=== PATIENT | male | born 1960 | race Caucasian/White ===

== ENCOUNTER 2018-08-09 12:39 | Emergency (ER) | payer SELFPAY ==
[2018-08-09] MEDS ORDERED: DICYCLOMINE HCL INJ 20 MG/2 ML AMPULE IM ONE (13:09)
[2018-08-09] MEDS ORDERED: CLONIDINE 0.1 MG/24 HR PATCH.TDWK TD ONE (13:09)
[2018-08-09] MEDS ORDERED: PROMETHAZINE HCL 25 MG TABLET PO ONE (13:09)
--- NOTE | 2018-08-09 13:09 | ER Document Report ---
ED Medical Screen (RME) - General Chief Complaint: Back Pain Stated Complaint: BACK PAIN Time Seen by Provider: 08/09/18 12:51 Mode of Arrival: Wheelchair Information source: Patient Notes: Patient is a 57-year-old male with chronic back pain presenting to the emergency department with complaints of pain. Patient reports he has been out of his narcotics. He states he took his last dose yesterday, states although he took his last dose yesterday he has been slowly tapering himself off of them as he moved here from [place] 2 weeks ago and has been unable to get into see pain management. Patient reports he is having acute withdrawals, patient shaking in the wheelchair at the time of my evaluation. Initially his heart rate was 125 for the nurse upfront however on my palpation his manual radial pulse is 76. He denies any chest pain or shortness of breath. I did speak to my attending physician regarding his presentation and her recommendation at this time is to obtain baseline labs as he has not been here in our facility previously and order him clonidine patch, Bentyl IM and P henergan. This plan was discussed with patient and patient agreeable to this plan. Labs will be obtained, patient will be seen by another provider in the back. I have greeted and performed a rapid initial assessment of this patient. A comprehensive ED assessment and evaluation of the patient, analysis of test results and completion of the medical decision making process will be conducted by additional ED providers. I have specifically instructed the patient or family members with the patient to immediately return to any nursing staff should anything change in the patient's condition or with their chief complaint. This medical record was dictated with voice recognizing software. There may be grammatical, syntax errors that are unintended. TRAVEL OUTSIDE OF THE [place] IN LAST 30 DAYS: No - Related Data Allergies/Adverse Reactions: No Known Allergies Allergy (Verified 08/09/18 12:40) Past Medical History - Social History Frequency of alcohol use: None Drug Abuse: None - Past Medical History Cardiac Medical History: Reports: Hx Hypertension Renal/ Medical History: Denies: Hx Peritoneal Dialysis Psychiatric Medical History: Reports: Hx Depression - anxiety Past Surgical History: Reports: Hx Orthopedic Surgery - back Physical Exam - Vital signs Vitals: Temp Pulse Resp BP Pulse Ox 98.4 F 125 H 24 H 145/101 H 95 08/09/18 12:44 08/09/18 12:44 08/09/18 12:44 08/09/18 12:44 08/09/18 12:44 Course - Vital Signs Vital signs: Temp Pulse Resp BP Pulse Ox 98.5 F 78 18 150/89 H 98 08/09/18 16:44 08/09/18 16:44 08/09/18 16:44 08/09/18 16:44 08/09/18 16:44 - Laboratory Result Diagrams: 08/09/18 13:30 08/09/18 13:30 Laboratory results interpreted by me: 08/09/18 08/09/18 13:30 13:30 RBC 6.09 H Hgb 17.4 H RDW 14.1 H Seg Neutrophils % 79.0 H Glucose 123 H AST 13 L ALT 16 L Albumin 5.2 H Doctor's Discharge - Discharge Clinical Impression: Back pain Condition: Good Disposition: HOME, SELF-CARE Additional Instructions: You have been seen in the Emergency Department (ED) today for back pain. Unfortunately, we are unable to prescribe narcotic medications out of the emergency department. We have given you a short course of Valium that he can take to help with these symptoms. Please also take Motrin 600 mg every 6 hours and/or Tylenol every 6 hours for pain/inflammation. Apply heat to the area as often as you are able. Continue to keep active and avoid prolonged periods of bed rest. Please follow up with pain management as soon as possible regarding today's ED visit and your back pain. Return to the ED for fever, weakness or numbness of either leg, or if you develop either (1) an inability to urinate or have bowel movements, or (2) loss of your ability to control your bathroom functions (if you start having "accidents"), or if you develop other new symptoms that concern you. Prescriptions: Diazepam 10 mg PO Q8H PRN #12 tablet PRN Reason:
[2018-08-09 14:02] LABS: ABSOLUTE BASOPHILS # (AUTO) 0.1 10^3/uL (0.0-0.2); ABSOLUTE EOSINOPHILS # (AUTO) 0.1 10^3/uL (0.0-0.6); ABSOLUTE LYMPHOCYTES (AUTO) 1.1 10^3/uL (0.5-4.7); ABSOLUTE MONOCYTES (AUTO) 0.2 10^3/uL (0.1-1.4); ABSOLUTE NEUT (AUTO) 5.7 10^3/uL (1.7-8.2); BASOPHILS % (AUTO) 1.1 % (0-2); HEMATOCRIT 50.3 % (37.9-51.0); HEMOGLOBIN 17.4 g/dL (13.5-17.0); LYMPHOCYTES % (AUTO) 15.7 % (13-45); MEAN CORPUSCULAR HEMOGLOBIN 28.5 pg (27.0-33.4); MEAN CORPUSCULAR HGB CONC 34.5 g/dL (32.0-36.0); MEAN CORPUSCULAR VOLUME 83 fl (80-97); MONOCYTES % (AUTO) 3.2 % (3-13); PLATELET COUNT 280 10^3/uL (150-450); RED BLOOD COUNT 6.09 10^6/uL (4.35-5.55); RED CELL DISTRIBUTION WIDTH 14.1 % (11.5-14.0); TOTAL CELLS COUNTED % (AUTO) 100 %; WHITE BLOOD COUNT 7.2 10^3/uL (4.0-10.5)
[2018-08-09 14:22] LABS: ALANINE AMINOTRANSFERASE 16 U/L (21-72); ALBUMIN 5.2 g/dL (3.5-5.0); ALKALINE PHOSPHATASE 87 U/L (38-126); ANION GAP 11 (5-19); ASPARTATE AMINO TRANSFERASE 13 U/L (17-59); BILIRUBIN,DIRECT 0.3 mg/dL (0.0-0.4); BILIRUBIN,TOTAL 0.4 mg/dL (0.2-1.3); BLOOD UREA NITROGEN 11 mg/dL (7-20); CALCIUM 10.2 mg/dL (8.4-10.2); CARBON DIOXIDE 23 mmol/L (22-30); CHLORIDE 105 mmol/L (98-107); CREATINE KINASE 97 U/L (55-170); GLUCOSE 123 mg/dL (75-110); POTASSIUM 4.6 mmol/L (3.6-5.0); SODIUM 139.4 mmol/L (137-145); TOTAL PROTEIN 8.1 g/dL (6.3-8.2)
[2018-08-09 14:34] LABS: CREATINE KINASE MB 1.05 ng/mL (<4.55)
[2018-08-09 14:42] LABS: TROPONIN I < 0.012 ng/mL
--- NOTE | 2018-08-09 15:56 | ER Document Report ---
ED General Pain - General Chief Complaint: Back Pain Stated Complaint: BACK PAIN Time Seen by Provider: 08/09/18 12:51 Mode of Arrival: Wheelchair Notes: 57-year-old male with history of multiple back surgeries on pain management in [place] who moved to [place] 2 weeks ago presents to the emergency department for acute pain and opiate withdrawal. Patient states he does not have insurance and has been unable to get his pain medications prescribed from pain management in [place]. He was taking oxycodone 10 mg every 8 hours and morphine 15 mg X are 2 times per day. Patient states he is in unbearable pain and he stated "either help me or shoot me". Patient denies fevers but complains of diaphoresis, patient can complains of severe, acute burning pain like "blowtorch is blasting my toes" of the left foot. Patient is also complaining of a severe headache, diarrhea, and irritability. No shortness of breath or chest pain he denies fevers or chills, denies nausea or vomiting, denies abdominal pain. No other complaints TRAVEL OUTSIDE OF THE [place] IN LAST 30 DAYS: No - Related Data Allergies/Adverse Reactions: No Known Allergies Allergy (Verified 08/09/18 12:40) Past Medical History - General Information source: Patient - Social History Smoking Status: Current Every Day Smoker Frequency of alcohol use: None Drug Abuse: None Family History: None Patient has suicidal ideation: No Patient has homicidal ideation: No - Past Medical History Cardiac Medical History: Reports: Hx Hypertension Renal/ Medical History: Denies: Hx Peritoneal Dialysis Psychiatric Medical History: Reports: Hx Depression - anxiety Past Surgical History: Reports: Hx Orthopedic Surgery - back Review of Systems - Review of Systems Constitutional: See HPI EENT: No symptoms reported Cardiovascular: See HPI Respiratory: See HPI Gastrointestinal: See HPI Genitourinary: See HPI Male Genitourinary: No symptoms reported Musculoskeletal: See HPI Skin: See HPI Hematologic/Lymphatic: No symptoms reported Neurological/Psychological: No symptoms reported Physical Exam - Vital signs Vitals: Temp Pulse Resp BP Pulse Ox 98.4 F 125 H 24 H 145/101 H 95 08/09/18 12:44 08/09/18 12:44 08/09/18 12:44 08/09/18 12:44 08/09/18 12:44 - Notes Notes: PHYSICAL EXAMINATION: Reviewed vital signs and charting by RN GENERAL: Alert, interacts well. Acute distress. HEAD: Normocephalic, atraumatic. EYES: Pupils equal and round. Extraocular movements intact. ENT: Oral mucosa moist, tongue midline. NECK: Full range of motion. Trachea midline. LUNGS: Clear to auscultation bilaterally, no wheezes, rales, or rhonchi. No respiratory distress. HEART: Regular rate and rhythm. No murmur ABDOMEN: soft, non-tender. No distention. Bowel sounds present EXTREMITIES: Moves all 4 extremities spontaneously. No edema, No cyanosis. PSYCH: Normal affect, normal mood. SKIN: Warm, dry, normal turgor. No rashes or lesions noted. Course - Re-evaluation Re-evalutation: 08/09/18 16:07 Patient presents in acute distress. Initial heart rate 125 in triage but upon my assessment it was 90. Patient given clonidine, Bentyl, Phenergan in triage. Briefly discussed with Dr. Villegas, supervising physician, who agreed that narcotics are an appropriate and will not treatment is clonidine. 08/09/18 16:18 I have given patient diazepam 10 mg IM once. Discussed with supervising physician once more and narcotics will not be prescribed. Will give diazepam 10 mg p.o. #12 to bridge patient until his appointment on Saturday. At this point his vital signs are within normal limits and he is stable for discharge. - Vital Signs Vital signs: Temp Pulse Resp BP Pulse Ox 98.4 F 125 H 24 H 145/101 H 95 08/09/18 12:44 08/09/18 12:44 08/09/18 12:44 08/09/18 12:44 08/09/18 12:44 - Laboratory Result Diagrams: 08/09/18 13:30 08/09/18 13:30 Laboratory results interpreted by me: 08/09/18 08/09/18 13:30 13:30 RBC 6.09 H Hgb 17.4 H RDW 14.1 H Seg Neutrophils % 79.0 H Glucose 123 H AST 13 L ALT 16 L Albumin 5.2 H Discharge - Discharge Clinical Impression: Back pain Qualifiers: Back pain location: low back pain Chronicity: chronic Back pain laterality: left Sciatica presence: with sciatica Sciatica laterality: sciatica of left side Qualified Code(s): M54.42 - Lumbago with sciatica, left side; G89.29 - Other chronic pain Condition: Good Disposition: HOME, SELF-CARE Additional Instructions: You have been seen in the Emergency Department (ED) today for back pain. Unfortunately, we are unable to prescribe narcotic medications out of the emergency department. We have given you a short course of Valium that he can take to help with these symptoms. Please also take Motrin 600 mg every 6 hours and/or Tylenol every 6 hours for pain/inflammation. Apply heat to the area as often as you are able. Continue to keep active and avoid prolonged periods of bed rest. Please follow up with pain management as soon as possible regarding today's ED visit and your back pain. Return to the ED for fever, weakness or numbness of either leg, or if you develop either (1) an inability to urinate or have bowel movements, or (2) loss of your ability to control your bathroom functions (if you start having "accidents"), or if you develop other new symptoms that concern you.
[2018-08-09] MEDS ORDERED: DIAZEPAM INJ 10 MG/2 ML DISP.SYRIN IM ONE (16:10)
[2018-08-09] MEDS ORDERED: ACETAMINOPHEN 325 MG TABLET PO ONE (16:25)
[2018-08-09 16:45] VITALS: BP 150/89
--- NOTE | 2018-08-10 09:30 | EKG REPORT ---
SEVERITY:- BORDERLINE ECG - SINUS RHYTHM BORDERLINE T WAVE ABNORMALITIES : Confirmed by: Shayla Ortega MD 10-Aug-2018 09:29:15
== END 2018-08-09 16:46 | disposition home or self-care (01) ==
LOC: ER 12:39
DX: G89.29 Other chronic pain (principal); M54.42 Lumbago with sciatica, left side; R51 Headache; R19.7 Diarrhea, unspecified; F17.200 Nicotine dependence, unspecified, uncomplicated; I10 Essential (primary) hypertension
CPT/HCPCS: 93005; 99283; 96372; 36415; 82553; 82550; 85025; 80053; 84484; 93010; J3360; J0500; J3490

== ENCOUNTER 2018-08-18 02:39 | Emergency (ER) | payer BC ==
[2018-08-18 02:51] VITALS: BP 151/88
--- NOTE | 2018-08-18 04:40 | ER Document Report ---
ED General - General Chief Complaint: Skin Problem Stated Complaint: POSSIBLE ALLERGIC REACTION Time Seen by Provider: 08/18/18 04:10 Primary Care Provider: ERIN BRAVO MD [COMMUNITY BASED STAFF] - Follow up in 3-5 days (OR YOUR PRIMARY CARE. ) Notes: Patient is a 57-year-old male that presents to the emergency department for chief complaint of left arm pain possible allergic reaction. Patient reports he was seen here just over a week ago, for back pain, and was treated for possible withdrawal, and was given IM Valium, as well as IM Bentyl, he states that shortly after getting the injection, he had pain, and redness and is persisted over the course of the week he does not improve so he decided to come to the emergency department to be reevaluated. He denies any fevers, chills, night sweats. He currently rates the pain as a 2 out of 10, is worse when palpated in certain areas of it, is just over the deltoid. He does have some pain with range of motion as well as seems to make it worse particular with abduction of the shoulder. Denies any chest pain, shortness of breath, difficulty breathing, abdominal pain, nausea or vomiting. Past Medical History: Chronic low back pain, hypertension Past Surgical History: Multiple back surgeries Social History: Admits to smoking cigarettes, denies alcohol or illicit drug use. Family History: Reviewed and noncontributory for presenting illness Allergies: Reviewed, see documented allergy list. REVIEW OF SYSTEMS: Other than noted above, the 12 point review of systems was reviewed with the patient and were negative, all pertinent findings are included in the HPI. PHYSICAL EXAMINATION: Vital signs reviewed, nursing noted reviewed. GENERAL: Well-appearing, well-nourished and in no acute distress. HEAD: Atraumatic, normocephalic. EYES: Eyes appear normal, sclera anicteric, conjunctiva are normal. ENT: Moist mucous membranes. NECK: Normal range of motion, supple without lymphadenopathy LUNGS: Breath sounds clear to auscultation bilaterally and equal. No wheezes rales or rhonchi. HEART: Regular rate and rhythm without murmurs EXTREMITIES: Nontender, good range of motion, no pitting or edema. NEUROLOGICAL: No focal neurological deficits. Moves all extremities spontaneously Motor and sensory grossly intact on exam. PSYCH: Normal mood, normal affect. SKIN: Warm, Dry, normal turgor, on the left lateral aspect of the shoulder, over the deltoid, there is an area of erythema and skin irritation measuring approximately 1-1/2 cm in diameter, and there are extensions of erythema anteriorly on the skin and posteriorly, no flutuance noted, there is no axillary lymphadenopathy noted. This appears most consistent with a superficial phlebitis. TRAVEL OUTSIDE OF THE [place] IN LAST 30 DAYS: No - Related Data Allergies/Adverse Reactions: No Known Allergies Allergy (Verified 08/09/18 12:40) Past Medical History - Social History Smoking Status: Current Every Day Smoker Family History: None Patient has suicidal ideation: No Patient has homicidal ideation: No - Past Medical History Cardiac Medical History: Reports: Hx Hypertension Renal/ Medical History: Denies: Hx Peritoneal Dialysis Psychiatric Medical History: Reports: Hx Depression - anxiety Past Surgical History: Reports: Hx Orthopedic Surgery - back Physical Exam - Vital signs Vitals: Temp Pulse Resp BP Pulse Ox 97.9 F 79 18 151/88 H 99 08/18/18 02:50 08/18/18 02:50 08/18/18 02:50 08/18/18 02:50 08/18/18 02:50 Course - Re-evaluation Re-evalutation: Patient seen and examined, vital signs reviewed. On exam there appears to be a skin reaction over the left deltoid, likely a phlebitis from the IM bentyl would be most likely, it does not appear to be cellulitis and under bedside US there was no abscess or fluid collection noted. At this point the patient appears stable, will advise anti inflammatories and cover with keflex in case this may be a early cellulitis and advised follow up with his PCP, he was agreeable to this plan of care and discharge to home in stable condition. - Vital Signs Vital signs: Temp Pulse Resp BP Pulse Ox 97.9 F 79 18 151/88 H 99 08/18/18 02:50 08/18/18 02:50 08/18/18 02:50 08/18/18 02:50 08/18/18 02:50 Discharge - Discharge Clinical Impression: Phlebitis Medication reaction Qualifiers: Encounter type: initial encounter Qualified Code(s): T50.905A - Adverse effect of unspecified drugs, medicaments and biological substances, initial encounter Condition: Stable Disposition: HOME, SELF-CARE Instructions: Superficial Phlebitis ([facility]) Additional Instructions: Please take the prescribed antibiotics, and anti-inflammatory over the next 7 days, please follow-up with your primary care physician, if this worsens, or is not improving over the next week, do not hesitate to return to the emergency department to be reevaluated. Prescriptions: RX: Cephalexin Monohydrate [Keflex 500 mg Capsule] 500 mg PO TID 7 Days #21 capsule Ibuprofen [Motrin 600 mg Tablet] 600 mg PO Q8H #30 tablet Referrals: ERIN BRAVO MD [COMMUNITY BASED STAFF] - Follow up in 3-5 days (OR YOUR PRIMARY CARE. )
== END 2018-08-18 04:51 | disposition home or self-care (01) ==
LOC: ER 02:39
DX: I80.8 Phlebitis and thrombophlebitis of other sites (principal); M79.602 Pain in left arm; T50.905A Adverse effect of unspecified drugs, medicaments and biological substances, initial encounter; X58.XXXA Exposure to other specified factors, initial encounter; G89.29 Other chronic pain; M54.5 Low back pain; I10 Essential (primary) hypertension; F17.210 Nicotine dependence, cigarettes, uncomplicated
CPT/HCPCS: 99283

== ENCOUNTER → 2019-05-06 | Outpatient (CLI) | payer BC ==
--- NOTE | 2019-05-06 11:00 | RADIOLOGY REPORT (SQ) ---
EXAM DESCRIPTION: SHOULDER RIGHT 2 OR MORE VIEWS COMPLETED DATE/TIME: 05/06/2019 9:40 am REASON FOR STUDY: S46.001A UNSP INJ MUSC/TEND THE ROTATOR CUFF OF R SHOULDER, INIT S46.001A UNSP IN J MUSC/TEND THE ROTATOR CUFF OF R SHOULDER, COMPARISON: None. NUMBER OF VIEWS: Three views. TECHNIQUE: Internal rotation, external rotation, and Y view images acquired of the right shoulder. LIMITATIONS: None. FINDINGS: MINERALIZATION: Normal. BONES: No acute fracture. No worrisome bone lesions. JOINTS: No dislocation. Acromioclavicular osteoarthropathy. VISUALIZED LUNGS AND RIBS: No pneumothorax. No rib fracture. SOFT TISSUES: No radiopaque foreign body. OTHER: No other significant finding. IMPRESSION: No evidence of acute bony abnormality of the right shoulder. [id number] acromioclavicular osteoarthropathy. TECHNICAL DOCUMENTATION: JOB ID: [id number] 2010 [employer]- All Rights Reserved Reading location - IP/workstation name: [email or web address]
== END ==
LOC: RAD 09:28
PROVIDERS: ATTEND Nurse Practitioner Primary Care
DX: S46.001A Unspecified injury of muscle(s) and tendon(s) of the rotator cuff of right shoulder, initial encounter (principal); X58.XXXA Exposure to other specified factors, initial encounter; M89.411 Other hypertrophic osteoarthropathy, right shoulder

== ENCOUNTER → 2019-11-09 | Day surgery (SDC) | payer BC ==
[~2019-11-09] MED LIST: LIDOCAINE 1% INJ-PF (10 MG/ML) 30 ML SDV ONE
--- NOTE | 2019-11-09 12:31 | RADIOLOGY REPORT (SQ) ---
EXAM DESCRIPTION: MRI RT UPPER JOINT WITH IMAGES COMPLETED DATE/TIME: 11/09/2019 10:50 am REASON FOR STUDY: M75.101 UNSP ROTATR-CUFF TEAR/RUPTR OF RIGHT SHOULDER, NOT TRAUMA M75.101 UNSP RO TATR-CUFF TEAR/RUPTR OF RIGHT SHOULDER, NOT T COMPARISON: None. TECHNIQUE: Right shoulder images acquired and stored on PACS. Oblique coronal, oblique sagittal, and axial imaging to include fat sensitive sequences as T1, water sensitive sequences as FST2/STIR, and contrast sensitive sequences as FST1. LIMITATIONS: None. FINDINGS: JOINT DISTENTION: Adequate distention for interpretation. BONE MARROW AND CORTEX: See glenohumeral findings below. No occult fracture or overtly suspicious mary jo ne lesion. No marrow replacement process. AC JOINT: Mild -moderate predominantly dorsal hypertrophic overgrowth. Subacromial space relatively preserved. GLENOHUMERAL JOINT: Subchondral cyst in the upper glenoid extending into the base of the coracoid pro cess. This appears to be associated with adjacent articular cartilage loss and labral tear. Potenti al extraosseous subcoracoid extension. ROTATOR CUFF: Suspect partial tear subscapularis. Some of this may be artifact related to arthrograp hy. Mild atrophy in the supraspinatus and infraspinatus muscles suspected. LABRUM AND BICEPS LABRAL COMPLEX: Irregular tear through the superior labrum to include the anchor. Tear extends into the intra-articular biceps tendon. Flattened partially torn appearance coursing ov er the lesser tuberosity. Slight subluxation here. INFERIOR LABRAL COMPLEX: Intact as assessed. ADJACENT SOFT TISSUES: No masses or nodes. OTHER: No other significant finding. IMPRESSION: 1. Superior labral tear with partial biceps tear and slight subluxation. 2. Partial tear subscapularis. Mild atrophy in the cuff. 3. Other findings as above. TECHNICAL DOCUMENTATION: JOB ID: [id number] 2010 [employer]- All Rights Reserved Reading location - IP/workstation name: [email or web address]
--- NOTE | 2019-11-09 14:48 | RADIOLOGY REPORT (SQ) ---
EXAM DESCRIPTION: FLUORO/NEEDLE PLACEMENT; ARTHRO SHOULDER INJECTION IMAGES COMPLETED DATE/TIME: 11/09/2019 10:26 am REASON FOR STUDY: M75.101 UNSP ROTATR-CUFF TEAR/RUPTR OF RIGHT SHOULDER, NOT TRAUMA M75.101 UNSP RO TATR-CUFF TEAR/RUPTR OF RIGHT SHOULDER, NOT T COMPARISON: None. FLUOROSCOPY TIME: 0.4 minutes 1 images saved to PACS. LIMITATIONS: None. PROCEDURE: Procedure, risks, benefits and alternatives explained to patient who then gave written co nsent. The right shoulder was marked and a time out was called for correct procedure verification. P osterior entry site marked using fluoroscopic guidance. Shoulder prepped and draped using sterile te chnique. Local anesthesia achieved using 1% lidocaine injection. Hypodermic needle introduced into the joint space under direct fluoroscopic visualization. Non-ionic contrast instilled to confirm intr a-articular position. Dilute gadolinium solution then injected. Needle removed and entry site covere d with sterile bandage. No immediate complications noted. TECHNIQUE: Digital images acquired during fluoroscopy and stored on PACS. Patient immediately take n to the MR suite for additional imaging. INJECTION LOCATION: Right posterior shoulder CONTRAST TYPE AND AMOUNT: 1 mL Omnipaque, 10 mL dilute ProHance. IMPRESSION: SUCCESSFUL NEEDLE PLACEMENT AND INJECTION FOR RIGHT SHOULDER MR ARTHROGRAM USING POSTERI OR APPROACH. COMMENT: None Quality ID 145: Final reports for procedures using fluoroscopy that document radiation exposure luca donna, or exposure time and number of fluorographic images (if radiation exposure indices are not avail able) TECHNICAL DOCUMENTATION: JOB ID: [id number] 2010 [employer]- All Rights Reserved Reading location - IP/workstation name: [email or web address] [id number]
--- NOTE | 2019-11-09 14:48 | RADIOLOGY REPORT (SQ) ---
EXAM DESCRIPTION: FLUORO/NEEDLE PLACEMENT; ARTHRO SHOULDER INJECTION IMAGES COMPLETED DATE/TIME: 11/09/2019 10:26 am REASON FOR STUDY: M75.101 UNSP ROTATR-CUFF TEAR/RUPTR OF RIGHT SHOULDER, NOT TRAUMA M75.101 UNSP RO TATR-CUFF TEAR/RUPTR OF RIGHT SHOULDER, NOT T COMPARISON: None. FLUOROSCOPY TIME: 0.4 minutes 1 images saved to PACS. LIMITATIONS: None. PROCEDURE: Procedure, risks, benefits and alternatives explained to patient who then gave written co nsent. The right shoulder was marked and a time out was called for correct procedure verification. P osterior entry site marked using fluoroscopic guidance. Shoulder prepped and draped using sterile te chnique. Local anesthesia achieved using 1% lidocaine injection. Hypodermic needle introduced into the joint space under direct fluoroscopic visualization. Non-ionic contrast instilled to confirm intr a-articular position. Dilute gadolinium solution then injected. Needle removed and entry site covere d with sterile bandage. No immediate complications noted. TECHNIQUE: Digital images acquired during fluoroscopy and stored on PACS. Patient immediately take n to the MR suite for additional imaging. INJECTION LOCATION: Right posterior shoulder CONTRAST TYPE AND AMOUNT: 1 mL Omnipaque, 10 mL dilute ProHance. IMPRESSION: SUCCESSFUL NEEDLE PLACEMENT AND INJECTION FOR RIGHT SHOULDER MR ARTHROGRAM USING POSTERI OR APPROACH. COMMENT: None Quality ID 145: Final reports for procedures using fluoroscopy that document radiation exposure luca donna, or exposure time and number of fluorographic images (if radiation exposure indices are not avail able) TECHNICAL DOCUMENTATION: JOB ID: [id number] 2010 [employer]- All Rights Reserved Reading location - IP/workstation name: [email or web address] [id number]
== END ==
LOC: RAD 09:39
PROVIDERS: ATTEND Physician Assistant
DX: M75.101 Unspecified rotator cuff tear or rupture of right shoulder, not specified as traumatic (principal); S43.431A Superior glenoid labrum lesion of right shoulder, initial encounter; S43.491A Other sprain of right shoulder joint, initial encounter; X58.XXXA Exposure to other specified factors, initial encounter
CPT/HCPCS: 73222; 77002; 23350; A9576; J3490

== ENCOUNTER 2020-02-08 12:39 | Emergency (ER) | payer BC ==
--- NOTE | 2020-02-08 13:22 | ER Document Report ---
ED Medical Screen (RME) - General Chief Complaint: Flu Symptoms Stated Complaint: NAUSEA/ABDOMINAL PAIN Time Seen by Provider: 02/08/20 13:14 Primary Care Provider: JOSE ENRIQUE VERONICA MD [Primary Care Provider] - Follow up as needed Mode of Arrival: Wheelchair Information source: Patient Notes: 59-year-old male presents to ED for complaint is sick to stomach weak dizzy fe els like he is in a pass out back and shoulder pain congestion short of breath but no bicycle of her son. Smokes pack a day does not drink or do drugs. Has a history of back and shoulder surgeries high blood pressure cholesterol and is on multiple medication he does not know what they are for. I have greeted and performed a rapid initial assessment of this patient. A comprehensive ED assessment and evaluation of the patient, analysis of test results and completion of medical decision making process will be conducted by an additional ED providers. TRAVEL OUTSIDE OF THE [place] IN LAST 30 DAYS: No - Related Data Allergies/Adverse Reactions: No Known Allergies Allergy (Verified 02/08/20 13:14) Past Medical History - Past Medical History Cardiac Medical History: Reports: Hx Hypertension Renal/ Medical History: Denies: Hx Peritoneal Dialysis Psychiatric Medical History: Reports: Hx Depression - anxiety Past Surgical History: Reports: Hx Orthopedic Surgery - back Physical Exam - Vital signs Vitals: Temp Pulse Resp BP Pulse Ox 98.3 F 78 22 H 139/85 H 98 02/08/20 00:55 02/08/20 00:55 02/08/20 00:55 02/08/20 00:55 02/08/20 00:55 Course - Vital Signs Vital signs: Temp Pulse Resp BP Pulse Ox 98.3 F 78 22 H 139/85 H 98 02/08/20 00:55 02/08/20 00:55 02/08/20 00:55 02/08/20 00:55 02/08/20 00:55 Doctor's Discharge - Discharge Referrals: JOSE ENRIQUE VERONICA MD [Primary Care Provider] - Follow up as needed
--- NOTE | 2020-02-08 14:28 | RADIOLOGY REPORT (SQ) ---
EXAM DESCRIPTION: CHEST SINGLE VIEW IMAGES COMPLETED DATE/TIME: 02/08/2020 2:16 pm REASON FOR STUDY: short of breath COMPARISON: None. EXAM PARAMETERS: NUMBER OF VIEWS: One view. TECHNIQUE: Single frontal radiographic view of the chest acquired. RADIATION DOSE: NA LIMITATIONS: None. FINDINGS: LUNGS AND PLEURA: No opacities, masses or pneumothorax. No pleural effusion. MEDIASTINUM AND HILAR STRUCTURES: No masses. Contour normal. HEART AND VASCULAR STRUCTURES: Heart normal in size. Normal vasculature. BONES: No acute findings. HARDWARE: None in the chest. OTHER: No other significant finding. IMPRESSION: 1. NO ACUTE RADIOGRAPHIC FINDING IN THE CHEST. TECHNICAL DOCUMENTATION: JOB ID: [id number] 2010 [employer]- All Rights Reserved Reading location - IP/workstation name: [email or web address]
[2020-02-08] MEDS ORDERED: METOCLOPRAMIDE HCL INJ/PF 10 MG/2 ML SDV IV ONE (18:05)
[2020-02-08] MEDS ORDERED: NORMAL SALINE 1000 ML 1,000 ML IV ONE ×2 (18:05)
[2020-02-08] MEDS ORDERED: DIPHENHYDRAMINE HCL 50 MG/ML VIAL IV ONE (18:05)
[2020-02-08] MEDS ORDERED: PANTOPRAZOLE SODIUM 40 MG VIAL IV STA (18:06)
[2020-02-08] MEDS ORDERED: FENTANYL CITRATE INJ/PF 100 MCG/2 ML AMPUL IV ONE (18:06)
[2020-02-08 18:35] LABS: HEMATOCRIT 51.3 % (37.9-51.0); HEMOGLOBIN 17.5 g/dL (13.5-17.0); MEAN CORPUSCULAR HEMOGLOBIN 28.5 pg (27.0-33.4); MEAN CORPUSCULAR HGB CONC 34.1 g/dL (32.0-36.0); MEAN CORPUSCULAR VOLUME 83 fl (80-97); PLATELET COUNT 242 10^3/uL (150-450); RED BLOOD COUNT 6.15 10^6/uL (4.35-5.55); RED CELL DISTRIBUTION WIDTH 14.2 % (11.5-14.0); WHITE BLOOD COUNT 15.4 10^3/uL (4.0-10.5)
[2020-02-08 18:54] LABS: ALKALINE PHOSPHATASE 111 U/L (38-126); ANION GAP 10 (5-19); ASPARTATE AMINO TRANSFERASE 20 U/L (17-59); BILIRUBIN,DIRECT 0.2 mg/dL (0.0-0.4); BILIRUBIN,TOTAL 0.6 mg/dL (0.2-1.3); BLOOD UREA NITROGEN 10 mg/dL (7-20); CALCIUM 10.3 mg/dL (8.4-10.2); CARBON DIOXIDE 26 mmol/L (22-30); CHLORIDE 104 mmol/L (98-107); GLUCOSE 133 mg/dL (75-110); POTASSIUM 3.9 mmol/L (3.6-5.0); TOTAL PROTEIN 8.4 g/dL (6.3-8.2)
[2020-02-08 18:57] LABS: ABSOLUTE LYMPHOCYTES# (MANUAL) 1.2 10^3/uL (0.5-4.7); ABSOLUTE MONOCYTES # (MANUAL) 0.2 10^3/uL (0.1-1.4); BAND NEUTROPHILS % (MANUAL) 1 % (3-5); BASOPHILS % (MANUAL) 1 % (0-2); EOSINOPHILS % (MANUAL) 0 % (0-6); LYMPHOCYTES % (MANUAL) 8 % (13-45); MONOCYTES % (MANUAL) 1 % (3-13); SEGMENTED NEUTROPHILS % (MAN) 89 % (42-78); TOTAL CELLS COUNTED 100
[2020-02-08 18:58] LABS: ANISOCYTOSIS SLIGHT; PLATELET COMMENT ADEQUATE
--- NOTE | 2020-02-08 19:04 | ER Document Report ---
Entered by UMA NGUYEN SCRIBE 02/08/20 1728 Acting as scribe for:SERGEI YEN, DO ED General - General Chief Complaint: Flu Symptoms Stated Complaint: NAUSEA/ABDOMINAL PAIN Time Seen by Provider: 02/08/20 13:14 Primary Care Provider: JOSE ENRIQUE VERONICA MD [Primary Care Provider] - Follow up as needed Mode of Arrival: Wheelchair Information source: Patient Notes: This 59 year old male patient presents to the emergency department today with complaints of diffuse abdominal pain, nausea, and vomiting. Patient is in pain management, filling a prescription for #150 15mg oxycodone 10 days ago (01/29/2020) for chronic back pain. He reports that he woke up with this pain. He had a normal bowel movement this morning. He denies any fevers, cough, or diarrhea. TRAVEL OUTSIDE OF THE [place] IN LAST 30 DAYS: No - Related Data Allergies/Adverse Reactions: No Known Allergies Allergy (Verified 02/08/20 13:14) Home Medications: HTN. OXYCODONE. VITAMINS. CELEXA. CHOLESTEROL Past Medical History - General Information source: Patient - Social History Smoking Status: Current Every Day Smoker Cigarette use (# per day): Yes Chew tobacco use (# tins/day): No Frequency of alcohol use: None Drug Abuse: None Occupation: unemployed Lives with: Family Family History: None Patient has homicidal ideation: No - Past Medical History Cardiac Medical History: Reports: Hx Hypertension Psychiatric Medical History: Reports: Hx Anxiety, Hx Depression Past Surgical History: Reports: Hx Orthopedic Surgery - back Review of Systems - Review of Systems Constitutional: denies: Fever EENT: No symptoms reported Cardiovascular: No symptoms reported Respiratory: denies: Cough Gastrointestinal: See HPI, Abdominal pain, Nausea, Vomiting. denies: Diarrhea Genitourinary: No symptoms reported Male Genitourinary: No symptoms reported Musculoskeletal: No symptoms reported Skin: No symptoms reported Hematologic/Lymphatic: No symptoms reported Neurological/Psychological: No symptoms reported -: Yes All other systems reviewed and negative Physical Exam - Vital signs Vitals: Temp Pulse Resp BP Pulse Ox 98.3 F 78 22 H 139/85 H 98 02/08/20 00:55 02/08/20 00:55 02/08/20 00:55 02/08/20 00:55 02/08/20 00:55 - Notes Notes: Physical Exam: General: Alert, appears well. HEENT: Normocephalic. Atraumatic. PERRL. Extraocular movements intact. Oropharynx clear. Neck: Supple. Non-tender. Respiratory: No respiratory distress. Clear and equal breath sounds bilaterally. Cardiovascular: Regular rate and rhythm. Abdominal: Epigastric and LUQ tenderness to palpation. No distension. Normal Bowel Sounds. Back: No gross abnormalities. Extremities: Moves all four extremities. Upper extremities: Normal inspection. Normal ROM. Lower extremities: Normal inspection. No edema. Normal ROM. Neurological: Normal cognition. AAOx4. Normal speech. Psychological: Normal affect. Normal Mood. Skin: Warm. Dry. Normal color. Course - Re-evaluation Re-evalutation: 02/08/20 22:52 MDM 59 year old male feeling poorly with epigastric pain and nausea and vomiting today earlier. He feels better here after treatment and his workup here is reassuring. Feel he is a reasonable candidate to follow up. Discussed return precautions. - Vital Signs Vital signs: Temp Pulse Resp BP Pulse Ox 98.9 F 92 18 105/57 L 95 02/08/20 21:41 02/08/20 21:41 02/08/20 21:41 02/08/20 21:41 02/08/20 21:41 - Laboratory Results Result Diagrams: 02/08/20 18:24 02/08/20 18:24 Laboratory Results Interpreted: 02/08/20 02/08/20 18:24 18:24 WBC 15.4 H RBC 6.15 H Hgb 17.5 H Hct 51.3 H RDW 14.2 H Seg Neuts % (Manual) 89 H Band Neutrophils % 1 L Lymphocytes % (Manual) 8 L Monocytes % (Manual) 1 L Abs Neuts (Manual) 13.9 H Glucose 133 H Calcium 10.3 H Total Protein 8.4 H Critical Laboratory Results Reviewed: No Critical Results - Radiology Results Critical Radiology Results Reviewed: No Critical Results Discharge - Discharge Clinical Impression: Nausea, Chronic abdominal pain Condition: Stable Disposition: HOME, SELF-CARE Instructions: COVID-19 Guidance for Persons Under Investigation, Abdominal Pain ([facility]), Clear Liquid Diet ([facility]) Additional Instructions: Rest, fluids, medicines as directed. Clear liquids for 24 hours. Please return here for chest pain, shortness of breath, persistent vomiting, other problems or concerns. You are under investigation for covid 19. Please self isolate, distance from others and wear your mask. Referrals: JOSE ENRIQUE VERONICA MD [Primary Care Provider] - Follow up as needed I personally performed the services described in the documentation, reviewed and edited the documentation which was dictated to the scribe in my presence, and it accurately records my words and actions.
[2020-02-08 21:36] LABS: A TYPE INFLUENZA AG NEGATIVE (NEGATIVE); B INFLUENZA AG NEGATIVE (NEGATIVE)
[2020-02-08] MEDS ORDERED: OXYCODONE HCL IR 5 MG TABLET PO ONE (22:51)
[2020-02-08 23:39] VITALS: BP 149/70
== END 2020-02-08 23:55 | disposition home or self-care (01) ==
LOC: ER 12:39
DX: R10.13 Epigastric pain (principal); M54.9 Dorsalgia, unspecified; G89.29 Other chronic pain; R11.2 Nausea with vomiting, unspecified; F32.9 Major depressive disorder, single episode, unspecified; F41.9 Anxiety disorder, unspecified; I10 Essential (primary) hypertension; F17.210 Nicotine dependence, cigarettes, uncomplicated; Z79.891 Long term (current) use of opiate analgesic; Z79.899 Other long term (current) drug therapy; Z20.828 Contact with and (suspected) exposure to other viral communicable diseases
CPT/HCPCS: 99284; 96361; 96374; 96375; 36415; 87070; 87880; 83605; 83690; 85025; 80053; 84484; 87804; 71045; U0003; J1200; J3010; J2765; C9113; J7030; C9803; 87635